=== PATIENT | male | born 1960 | race Hispanic/Latino ===

== ENCOUNTER 2023-05-04 16:18 | Emergency (ER) | payer OTHER | END 2023-05-04 23:20 | disposition home or self-care (01) | LOC: CSHERS 16:18 | DX: G47.30 Sleep apnea, unspecified (principal); J44.9 Chronic obstructive pulmonary disease, unspecified; I11.0 Hypertensive heart disease with heart failure; I50.9 Heart failure, unspecified; F17.220 Nicotine dependence, chewing tobacco, uncomplicated | CPT/HCPCS: 36600; 71045; 71275; 80053; 80061; 80306; 80307; 81001; 82805; 83690; 83735; 83880; 84443; 84484; 85025; 85379; 85610; 85730; 93005; 93306; 94760; 94762; 96374; 96375; G0378; J1940; J2060; J7611 ==